=== PATIENT | female | born 1980 | race Caucasian/White ===

== ENCOUNTER 2020-06-28 12:55 | Outpatient (CLI) | payer OTHER ==
[2020-06-28 19:17] LABS: SARS-CoV-2 PCR by NAA Not Detected (NotDetected)
== END 2020-06-28 12:56 | disposition home or self-care (01) ==
LOC: CSHLAB 12:55
PROVIDERS: ATTEND Internal Medicine Gastroenterology
DX: Z20.822 Contact with and (suspected) exposure to COVID-19 (principal); K22.0 Achalasia of cardia; K52.9 Noninfective gastroenteritis and colitis, unspecified
CPT/HCPCS: 87635; U0003; U0005

== ENCOUNTER 2020-07-01 10:56 | Day surgery (SDC) | payer OTHER ==
[2020-06-27 12:58] VITALS: BMI 54.1
[2020-07-01] MEDS ORDERED: Lidocaine 1% MPF 2 ML VIAL ONE (11:34)
[2020-07-01] MEDS ORDERED: PROPOFOL 20 ML ONE ×5 (12:44→15:21)
[2020-07-01] MEDS ORDERED: Lidocaine 1% PF 5 ML VIAL ONE (12:45)
[2020-07-01] MEDS ORDERED: Lidocaine 2% MPF 10 ML AMP (For Epidural Use) ONE (14:39)
== END 2020-07-01 16:30 | disposition home or self-care (01) ==
LOC: CSHSDC 10:56
PROVIDERS: ATTEND Internal Medicine Gastroenterology
DX: K22.0 Achalasia of cardia (principal); K52.9 Noninfective gastroenteritis and colitis, unspecified; K29.30 Chronic superficial gastritis without bleeding; K44.9 Diaphragmatic hernia without obstruction or gangrene; K57.30 Diverticulosis of large intestine without perforation or abscess without bleeding; K64.4 Residual hemorrhoidal skin tags
CPT/HCPCS: 36416; 88305; J2704

== ENCOUNTER 2021-12-18 08:45 | Outpatient (CLI) | payer BC ==
[2021-12-18] MEDS ORDERED: Magnevist 469MG/ML 20 ML VIAL ONE (14:17)
== END 2021-12-18 08:46 | disposition home or self-care (01) ==
LOC: CSHMRI 08:45
PROVIDERS: ATTEND Neurological Surgery
DX: E22.0 Acromegaly and pituitary gigantism (principal)
CPT/HCPCS: 70553; A9579

== ENCOUNTER 2023-04-09 08:09 | Observation (INO) | payer BC ==
[2023-04-09] MEDS ORDERED: Ketorolac Tromethamine 30 MG (1 mL) VIAL ONE (08:46)
[2023-04-09 08:50] LABS: BHCG - Serum Negative (NEGATIVE); Pregs Control Background? CLEAR/WHITE (CLR/WHITE); Pregs Control Bar Appear? YES (CONTROL BAR)
[2023-04-09 08:56] LABS: #Monocytes 0.7 10x3/uL (0.0-1.1); #Neutrophils 3.9 10x3/uL (1.5-8.4); %Basophils 0.3 % (0.0-2.0); %Eosinophils 0.3 % (0.0-6.0); %Lymphocytes 27.3 % (18.0-47.0); %Monocytes 10.4 % (0.0-10.0); %Neutrophils 61.4 % (40.0-75.0); Hematocrit 35.4 % (34.9-44.5); Hemoglobin 10.9 g/dL (12.0-15.5); Mean Corpuscular HGB CONC 30.8 g/dL (32.0-36.0); Mean Corpuscular Hemoglobin 23.3 pg (27.0-33.0); Mean Corpuscular Volume 75.6 fl (81.6-98.3); Platelet Count 248 10x3/uL (150-450); Red Blood Cell (RBC) Count 4.68 10x6/uL (3.90-5.03); White Blood Cell (WBC) Count 6.3 10x3/uL (3.5-10.5)
[2023-04-09 08:57] LABS: ALT (SGPT) 21 U/L (8-55); AST (SGOT) 27 U/L (5-34); Albumin 3.7 g/dL (3.5-5.0); Alkaline Phosphatase 113 U/L (40-110); Anion Gap 14 mmol/L (10-20); BUN (Urea Nitrogen) 6 mg/dL (7.0-18.7); Bilirubin, Total 0.4 mg/dL (0.2-1.2); Calc. Creatinine Clearance 0 mL/min (70-130); Calcium 8.1 mg/dL (7.8-10.44); Carbon Dioxide 26 mmol/L (22-29); Chloride 103 mmol/L (98-107); Estimated GFR 112; Globulin 2.7 g/dL (2.4-3.5); Glucose 125 mg/dL (70-105); Lipase 17 U/L (8-78); Magnesium 1.7 mg/dL (1.6-2.6); Potassium 3.7 mmol/L (3.5-5.1); Protein, Total 6.4 g/dL (6.0-8.3); Sodium 139 mmol/L (136-145)
[2023-04-09 09:00] LABS: Troponin I 0.131 ng/mL (< 0.028)
[2023-04-09 09:41] LABS: SARS-CoV-2 NAA Rapid Test Not Detected (NotDetected)
[2023-04-09] MEDS ORDERED: Acetaminophen 325 MG TAB PO PRN (10:46)
[2023-04-09] MEDS ORDERED: Ondansetron PF 4 MG/2 ML Vial IVP PRN (10:46)
[2023-04-09] MEDS ORDERED: Enoxaparin 120 MG/0.8 ML SYRINGE SC ONE (10:50)
[2023-04-09] MEDS ORDERED: Enoxaparin 30 MG (0.3 mL) SYRINGE ONE (10:50)
[2023-04-09] MEDS ORDERED: Dextrose 5% in Water 1,000 ML IV PRN (11:17)
[2023-04-09] MEDS ORDERED: Glucagon 1 MG/ML KIT IM PRN (11:17)
[2023-04-09] MEDS ORDERED: Dextrose 50% Abboject 50 ML SYRINGE SLOW IVP PRN (11:17)
[2023-04-09] MEDS ORDERED: HumaLOG 300 UNITS/3 ML VIAL SC PRN ×2 (11:17)
[2023-04-09 12:11] LABS: Troponin I 0.104 ng/mL (< 0.028)
[2023-04-09 12:46] VITALS: BMI 55.7
[2023-04-09] MEDS: Sodium Chloride 0.9% 1,000 ML IV SCH (13:32)
[2023-04-09] MEDS ORDERED: Ventolin HFA Inhaler 60 PUFF INHALER INH PRN (13:52)
[2023-04-09] MEDS ORDERED: Magnesium 2 GM/50 ML(in water) 2 GM in Premix 1 BAG IVPB SCH (14:30)
[2023-04-09 14:41] LABS: Magnesium 1.8 mg/dL (1.6-2.6)
[2023-04-09 14:48] LABS: Troponin I 0.064 ng/mL (< 0.028)
[2023-04-09] MEDS: Hydrocortisone Sod Succ/PF 100 mg/2 ml Vial IVP SCH ×2 (14:56→21:55)
[2023-04-09] MEDS ORDERED: Potassium Chloride 20 MEQ TAB PO SCH ×2 (15:00→21:45)
[2023-04-09] MEDS ORDERED: Potassium Chloride 20 MEQ in Premix 2 BAG IVPB SCH (15:45)
[2023-04-09] MEDS: Potassium Chloride 20 MEQ in Premix 1 BAG IVPB SCH ×2 (17:14→21:45)
[2023-04-09 19:50] LABS: Hemoglobin A1c 7.1 % (4.0-6.0)
[2023-04-09] MEDS: Oseltamivir 75 MG CAP PO SCH (20:22)
[2023-04-09] MEDS ORDERED: Pantoprazole 40 MG VIAL IVP SCH (22:45)
[2023-04-09] MEDS: Guaifenesin DM 100-10/5 ML UDCUP PO PRN (22:59)
[2023-04-10] MEDS: Sodium Chloride 0.9% 1,000 ML IV SCH (05:20)
[2023-04-10] MEDS: Guaifenesin DM 100-10/5 ML UDCUP PO PRN (05:20)
[2023-04-10] MEDS: Hydrocortisone Sod Succ/PF 100 mg/2 ml Vial IVP SCH (05:21)
[2023-04-10 05:27] LABS: Anion Gap 16 mmol/L (10-20); BUN (Urea Nitrogen) 6 mg/dL (7.0-18.7); Calc. Creatinine Clearance 308 mL/min (70-130); Calcium 8.3 mg/dL (7.8-10.44); Carbon Dioxide 19 mmol/L (22-29); Chloride 108 mmol/L (98-107); Estimated GFR 116; Glucose 162 mg/dL (70-105); Magnesium 1.9 mg/dL (1.6-2.6); Potassium 4.1 mmol/L (3.5-5.1); Sodium 139 mmol/L (136-145)
[2023-04-10 05:49] LABS: #Monocytes 0.3 10x3/uL (0.0-1.1); #Neutrophils 2.6 10x3/uL (1.5-8.4); %Basophils 0.5 % (0.0-2.0); %Lymphocytes 32.9 % (18.0-47.0); %Monocytes 7.5 % (0.0-10.0); %Neutrophils 58.4 % (40.0-75.0); Hematocrit 33.9 % (34.9-44.5); Hemoglobin 10.1 g/dL (12.0-15.5); Mean Corpuscular HGB CONC 29.8 g/dL (32.0-36.0); Mean Corpuscular Hemoglobin 22.6 pg (27.0-33.0); Mean Platelet Volume 12.4 fl (7.4-10.4); Platelet Count 276 10x3/uL (150-450); RBC Distribution Width 18.1 % (11.5-14.5); Red Blood Cell (RBC) Count 4.46 10x6/uL (3.90-5.03); White Blood Cell (WBC) Count 4.4 10x3/uL (3.5-10.5)
[2023-04-10] MEDS ORDERED: Levothyroxine Sodium 125 MCG TAB PO SCH (06:00)
[2023-04-10 08:48] VITALS: BP 133/75; TEMP 97.9
[2023-04-10] MEDS: Oseltamivir 75 MG CAP PO SCH (08:58)
[2023-04-10] MEDS ORDERED: hydrALAZINE 25 MG TAB PO SCH (09:00)
[2023-04-10] MEDS ORDERED: Aspirin Chewable 81 MG TAB PO SCH (09:00)
[2023-04-10] MEDS ORDERED: Lantus 1000 UNITS/10 ML VIAL SC SCH ×2 (09:00)
[2023-04-10] MEDS ORDERED: CeleCOXIB 100 MG CAP PO SCH (09:00)
[2023-04-10] MEDS ORDERED: Magnesium Oxide 250 MG TAB PO SCH (09:00)
[2023-04-10] MEDS ORDERED: Hydrochlorothiazide 25 MG TAB PO SCH (09:00)
[2023-04-10] MEDS ORDERED: Empagliflozin 25 MG TAB PO SCH (09:00)
[2023-04-10] MEDS ORDERED: BuPROPion XL 150 MG ER.TAB PO SCH (09:00)
[2023-04-10] MEDS ORDERED: Bisoprolol Fumarate 5 MG TAB PO SCH (09:00)
[2023-04-10] MEDS ORDERED: Dronedarone HCl 400 MG TAB PO SCH (09:00)
[2023-04-10] MEDS ORDERED: Pantoprazole 40 MG VIAL IVP SCH (21:00)
== END 2023-04-10 11:06 | disposition home or self-care (01) ==
LOC: CSHERS 08:09 → CSHTELE 10:20
PROVIDERS: ADMIT Internal Medicine; ATTEND Family Medicine
DX: R00.0 Tachycardia, unspecified (principal); E11.9 Type 2 diabetes mellitus without complications; J45.909 Unspecified asthma, uncomplicated; E03.9 Hypothyroidism, unspecified; F41.9 Anxiety disorder, unspecified; F32.A Depression, unspecified; I48.91 Unspecified atrial fibrillation; M19.90 Unspecified osteoarthritis, unspecified site; J10.1 Influenza due to other identified influenza virus with other respiratory manifestations; E86.0 Dehydration; E27.40 Unspecified adrenocortical insufficiency; E66.9 Obesity, unspecified; Z68.43 Body mass index [BMI] 50.0-59.9, adult; Z88.1 Allergy status to other antibiotic agents; Z88.2 Allergy status to sulfonamides; Z88.8 Allergy status to other drugs, medicaments and biological substances; Z79.899 Other long term (current) drug therapy; Z79.82 Long term (current) use of aspirin; Z79.4 Long term (current) use of insulin; Z90.49 Acquired absence of other specified parts of digestive tract
CPT/HCPCS: 36415; 36416; 71045; 80048; 80053; 83036; 83690; 83735; 84439; 84443; 84481; 84484; 84703; 85025; 93005; 93306; 94760; 96375; 96376; C9113; G0378; J1650; J1720; J1815; J1885; J3475; J3480; J7050

== ENCOUNTER 2024-04-20 10:09 | Outpatient (CLI) | payer BC ==
[2024-04-20 11:38] LABS: #Basophils 0.05 10x3/uL (0.0-0.2); #Eosinophils 0.18 10x3/uL (0.0-0.5); #Monocytes 0.53 10x3/uL (0.0-1.1); %Basophils 0.6 % (0.0-2.0); %Eosinophils 2.1 % (0.0-6.0); %Lymphocytes 29.1 % (18.0-47.0); %Monocytes 6.1 % (0.0-10.0); %Neutrophils 61.8 % (40.0-75.0); Hemoglobin 11.9 g/dL (12.0-15.5); Mean Corpuscular HGB CONC 30.5 g/dL (32.0-36.0); Mean Corpuscular Hemoglobin 24.6 pg (27.0-33.0); Mean Corpuscular Volume 80.7 fL (81.6-98.3); Mean Platelet Volume 12.6 fL (7.4-10.4); Platelet Count 325 10x3/uL (150-450); Red Blood Cell (RBC) Count 4.83 10x6/uL (3.90-5.03); White Blood Cell (WBC) Count 8.73 10x3/uL (3.5-10.5)
[2024-04-20 12:06] LABS: ALT (SGPT) 18 U/L (Less than 34); AST (SGOT) 25 U/L (11-34); Albumin 3.3 g/dL (3.1-4.5); Alkaline Phosphatase 106 U/L (40-110); Anion Gap 17 mmol/L (10-20); BUN (Urea Nitrogen) 12 mg/dL (7.0-18.7); Bilirubin, Direct 0.1 mg/dL (0.1-0.3); Bilirubin, Total 0.4 mg/dL (0.3-1.2); Calc. Creatinine Clearance 0 mL/min (70-130); Carbon Dioxide 23 mmol/L (22-29); Chloride 106 mmol/L (98-107); Estimated GFR 115; Glucose 141 mg/dL (70-105); Potassium 4.7 mmol/L (3.5-5.1); Protein, Total 6.6 g/dL (6.0-8.3); Sodium 141 mmol/L (136-145)
== END 2024-04-20 10:10 | disposition home or self-care (01) ==
LOC: CSHLAB 10:09
PROVIDERS: ATTEND Surgery
DX: Z01.812 Encounter for preprocedural laboratory examination (principal); K64.8 Other hemorrhoids
CPT/HCPCS: 80048; 80076; 85025

== ENCOUNTER 2025-01-25 14:19 | Outpatient (CLI) | payer BC | END 2025-01-25 14:20 | disposition home or self-care (01) | LOC: CSHMAMMO 14:19 | PROVIDERS: ATTEND Family Medicine | DX: Z12.31 Encounter for screening mammogram for malignant neoplasm of breast (principal) | CPT/HCPCS: 77063; 77067 ==